=== PATIENT | male | born 1960 | race Caucasian/White ===

== ENCOUNTER → 2022-01-15 | Outpatient (CLI) | payer SELFPAY ==
--- NOTE | 2022-01-15 09:00 | ASPS_PTH ---
PATIENT: CARLOS ALLEN LOC: GLO U#:[id number] AGE/SX: 61/M ROOM: RE01/15/[address]: Dr. Remy Huber MD : 1960 BED: DIS: 01/15/2022 SPEC #: [id number] RECD: 01/15/22 10:33 STATUS: YONAS JUDE #: [id number] JAY: 01/15/22 09:[address]: Remy Huber DEPT: CYTOLOGY RECD BY: Renetta Caal Tissues: Supraclavicular region of neck Procedures: Special Stain Group II Cytology Other HEADER OPERATION: Ultrasound-guided biopsy, left supraclavicular subcutaneous lesion PRE-OP DIAGNOSIS: Left supraclavicular subcutaneous lesion TISSUE SUBMITTED: FNA supraclavicular subcutaneous lesion x10 slides DIAGNOSIS CYTOLOGY Left supraclavicular subcutaneous lesion, fine needle aspiration (smears): Negative for malignancy. See comment. SJ:david 01/16/2022 COMMENT The specimen is paucicellular and consists of scant fragments of adipose tissue. Correlation with clinical, radiologic findings and appropriate follow up are necessary. If there is a high suspicion of malignancy, incisional or excisional re-biopsy of the lesion is suggested, if clinically indicated. CYTOLOGY STUDY Slides are reviewed. CYTOLOGY GROSS Received are ten smears labeled with the patient's name and designated per the requisition as supraclavicular subcutaneous lesion. Submitted for staining. / david 01/15/2022 TC:5 CPT: 96624
== END | disposition home or self-care (01) ==
LOC: LABSPEC 10:50
PROVIDERS: Referring Provider Surgery; Visit Provider Surgery
DX: L98.9 Disorder of the skin and subcutaneous tissue, unspecified (principal)
CPT/HCPCS: 88161; 88313

== ENCOUNTER 2022-02-07 07:57 | Day surgery (SDC) | payer SELFPAY ==
[2022-02-07] VITALS (7 sets, daily range): BP systolic 113–158; BP diastolic 63–83; PULSE 53–72; RESP 14–18; TEMP 36.4–37.1; O2SAT 100; BMI 22.7
--- NOTE | 2022-02-07 | GASB_PTH ---
PATIENT: CARLOS ALLEN LOC: EN U#:[id number] AGE/SX: 61/M ROOM: RE02/07/[address]: Dr. Gloria Fox MD : 1960 BED: DIS: 02/07/2022 SPEC #: [id number] RECD: 02/07/22 10:32 STATUS: YONAS JUDE #: [id number] JAY: 02/07/22 00:[address]: Gloria Fox DEPT: SURGICAL PATHOLOGY RECD BY: Luis Champion ENTERED: 02/07/22 10:32 SP TYPE: Gastric Bx OTHR DR: MD Dr. Remy Rios MD Tissues: A - Gastric mucous membrane B - Esophageal mucous membrane Procedures: Surgery Specimen Level IV HEADER OPERATION: [place] [place] PRE-OP DIAGNOSIS: Enlarged lymph node, supraclavicular fossa fullness, dysphagia TISSUE SUBMITTED: A ? Antrum for H. pylori and path, B ? Lower esophagus biopsy MICROSCOPIC DIAGNOSIS A. Antrum, biopsy: Mild gastritis. See microscopic description and comment. B. Lower esophagus, biopsy: A fragment of benign squamous epithelium. SJ:david 02/08/2022 COMMENT A. The results of immunohistochemistry for Helicobacter pylori will be reported separately ([id number]). MICROSCOPIC DESCRIPTION Slides are reviewed. A. The specimen shows fragments of gastric mucosa with chronic inflammatory cell infiltrates in the lamina propria consisting of lymphocytes and plasma cells, consistent with mild chronic gastritis. GROSS DESCRIPTION A - Received in fixative is one container labeled with the patient's name and designated antrum biopsy. The specimen consists of two irregular fragments of light ortiz soft tissue that in aggregate measure 0.6 x 0.3 x 0.1 cm. The specimen is totally submitted in one cassette. B - Received in fixative is one container labeled with the patient's name and designated lower esophagus biopsy. The specimen consists of one irregular fragment of light ortiz soft tissue that measures 0.3 x 0.3 x 0.1 cm. The specimen is totally submitted in one cassette. / ELENA:david 02/07/2022 TC:3 CPT: 12742 x2
[2022-02-07] MEDS: Lactated Ringers 1,000 ML 15 ML IV (08:39)
--- NOTE | 2022-02-07 09:17 | HP.PCM_ITS ---
History and Physical Date of Admission: 02/07/22 Date of Service:? 01/15/22 MR#: [id number] Acct: [id number] Name:CARLOS KIM Rep #: [id number] : 1960 ? ? Provider: Dr. Remy Huber MD Age/Sex:? 61/M ? ? Location: [facility] Status: Signed Intake Vital Signs ? 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 He is referred from Dr. Noel.? He confirms that this was purely an incidental finding as he transitioned care from his prior primary care physician.? He denies any symptoms from this area.? He is also unaware of any growth.? He has no history of enlarged lymph nodes, lipomas, or other subcutaneous masses.? He denies any recent weight changes.? He denies any chills or night sweats.? The only thing that he can recall is some tension ache in his left back.? 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 He specifically denies any infections or trauma to his left upper extremity or chest.? During a family history, patient states that both his father and mother have significant history of for stroke.? He is 1 of 6 children and all are healthy. From a GI perspective, patient complains of some difficulty swallowing.? He reports this is occurred probably 6 times in the last 4 years.? He notes that pieces of pork or other meat seem to become stuck in his lower esophagus.? He tries to vigorously swallow liquids, but this does not seem to result in any improvement and he simply wait until things passed spontaneously?which they always do.? He denies any regular experience of heartburn or retrosternal discomfort.? He also denies any nighttime awakenings with aspiration events.? He has no prior history of asthma or eczema. Patient's lower GI review of systems is also reviewed and he denies any bowel movement concerns.? He denies noting any blood with bowel movement.? He has not experienced any change in the caliber of his bowel movements.? There is been no increased constipation, but he does admit to some recent hemorrhoids. Patient's work-up to date has included a ultrasound that showed some lymphadenopathy on 12/25/2021.? Follow-up CT imaging of the neck and chest occurred earlier this month, but no significant abnormalities were seen. ROS General General: No weight change, appetite, fatigue, colon cancer, breast cancer or weakness HEENT HEENT: Yes swollen glands; No difficulty swallowing, eye injury, eye surgery or hoarseness Endo Endocrine: No thyroid disease, diabetes mellitus, thyroid cancer, Hair loss, heat intolerance or cold intolerance Skin Skin: No rash or changing moles Breast Breast: No left breast lump, right breast lump, nipple discharge, breast pain, abnormal mammogram, abnormal US or breast enlargement Musc Musculoskeletal: Yes back problems and arthritis; No rheumatoid arthritis, gout or joint pain Cardio Cardiovascular: No murmur, pacemaker, heart disease, atrial fibrillation, high blood pressure, heart attack, heart stent, palpitations, shortness of breat with exertion or chest pain Psych Psychiatric: No depression, anxiety or hearing voices Resp Respiratory: No shortness of breath, No sleep apnea, No cough, No COPD, No asthma, No emphysema and No wheezing Gastro Gastrointestinal: No abdominal pain, No nausea or vomiting, No diarrhea, No constipation, No blood in stool, No acid reflux, No hemorrhoids, No ulcers, No gallbladder problem and No black,tarry stools Santhosh Hematologic: No blood thinners, No blood disorders, No bleeding, No anemia and No blood clots Neuro Neurologic: No system reviewed and no additional complaints, except as documented, No as per HPI, No abnormal gait, No abnormal hearing, No abnormal movements, No abnormal speech, No behavioral changes, No burning sensations, No confusion, No convulsions, No disequilibrium, No dizziness, No localized weakness, No frequent falls, No headache(s), No lack of coordination, No loss of vision, No memory loss, No numbness, No other visual disturbances, No radicular pain, No restless legs, No sensory deficit, No syncope, No tingling, No tremor(s), No weakness and No other Exam Const General: cooperative, no acute distress and anxious Orientation: alert, awake and oriented x3 Neck Other: Neck is examined via palpation and there is no nodularity to the thyroid or lymphadenopathy along the jugular chains.? These findings are confirmed when bedside ultrasound is applied to patient's neck bilaterally Chest Breast Palpation: Yes supraclavicular Other: Patient with asymmetrical fullness of the left supraclavicular fossa.? Patient describes some mild symptoms when this area is palpated including some shooting pain into his hand Under ultrasound exam there is an approximately 1 x 2 cm oval shaped mass in the subcutaneous space directly superior to the subclavian vein and medial to the external jugular vein with a heterogeneous composition.? This appears at least partially encapsulated and of a different echogenicity than the overlying strap muscles.? Several other benign?appearing lymph nodes are seen more medially along the jugular chain with fatty hilum intact Resp Effort & Inspection: normal respiratory effort GI Other: Slender, numerous nevi of consistent color and shape are seen across the anterior abdominal wall, nondistended, soft, nontender to palpation x4 quadrants Office Procedures Fine Needle Aspiration Provider Documentation Details: Indication: Supraclavicular subcutaneous lesion After obtaining patient consent and conducting a timeout amongst those present, the procedure was commenced by locating the suspicious lesion in the subcutaneous space of the supraclavicular fossa using ultrasound.? This was located just medial to the external jugular vein and superior to the subclavian vein.? Superficially, the skin was cleaned with an alcohol swab and a wheal of local anesthetic was created after instilling 5 ml 1% lidocaine.? Then, under ultrasound guidance, multiple passes were made into the lesion using a 25-gauge needle.? Once an adequate specimen was detected within the hub of the needle and bottom of the syringe, this was handed off the field.? A second pass was made in a similar manner using a 22-gauge needle.? This specimen, also, was passed off the field for cytopathologic evaluation.? This sequence was again repeated with a 25-gauge and a 22-gauge needle to ensure adequate specimen.? External pressure was applied to the neck to assist with hemostasis. ? A quick examination was ma de with ultrasound to exclude any evidence of hematoma formation.? Then the surface of the neck was cleaned, dried, and a bandage was applied.? Patient was gradually returned to the sitting position and after short period of monitoring was dismissed.? Wound care instructions and expectations regarding pathologic processing were discussed prior to dismissal. Complications: None Estimated blood loss: 2 ml Alert Monique Alert Billing: Yes Procedure Time Out Time Out Informed consent given: Yes Consent signed: Yes Time out checklist: patient, procedure, site marked/identified, positioning of patient, supplies available, allergies confirmed and team agrees on procedure Time out staff in room: Yes Time out verified: Yes Time out date: 01/15/22 Time out time: 09:30 Assessment and Plan Assessment and Plan (1) Enlarged lymph node: ?Status:?Acute ?Comment: Patient with mildly enlarged lymph nodes on recent ultrasound exam of supraclavicular fossa.? However, those noted by radiology all appeared to have fatty sisi. (2) Supraclavicular fossa fullness: ?Status:?Acute ?Comment: This is a 61-year-old male who presents for asymmetrical, left-sided supraclavicular fullness.? Differential would include lymphadenopathy?including Virchow's node versus subcutaneous mass.? Patient denies any B symptoms consistent with a underlying lymphoma and denies most GI complaints.? There is some mild lymphadenopathy noted on ultrasound exam from late November, however, as noted above fatty sisi were seen with those lymph nodes identified.? Subsequent CT imaging of the neck and chest were unremarkable.? In my exam of the patient's neck with bedside ultrasound, I identified a 1 x 2 cm subcutaneous, heterogeneous lesion of the supraclavicular space.? This resided directly cephalad to the subclavian vein.? Given that I had a clear approach from any other vascular structures, I did elect to perform a fine-needle aspirate under ultrasound guidance.? Patient tolerated this procedure well witho ut complications.? Cytopathology is currently pending.? Post procedure wound care instructions were provided. ?Plan: ? Follow-up cytopathology and we will telephone patient with results (3) Dysphagia: ?Status:?Acute ?Comment: Patient complains of some mild progressive dysphagia over the last 4 years.? He notes particularly difficult time with meats.? He denies any history of heartburn or GERD.? He has not had any prior scope.? Based on his description, I am suspicious for esophageal stricture, eosinophilic esophagitis, Schatzki's ring, other? Given his description, Mr. Fofana requires EGD for further evaluation.? With there being some likelihood of endoscopic dilation being required to resolve Mr. Fofana's problem, he may require evaluation with a different provider.? I will investigate this as we await the results of his above cytopathology. ?Plan: ? We will look into possible internal referral for this evaluation and possible intervention Coding Level of Care Code Attention Monique Diagnoses Enlarged lymph node? R59.9 Supraclavicular fossa fullness? R22.2 Dysphagia? R13.10 Comment Recommend CPT 85978 01/15/22 1729 <Electronically signed by Remy Huber MD> Date Remy Huber MD
--- NOTE | 2022-02-07 09:30 | IMM_PTH ---
PATIENT: CARLOS ALLEN LOC: EN U#:[id number] AGE/SX: 61/M ROOM: RE02/07/[address]: Dr. Gloria Fox MD : 1960 BED: DIS: 02/07/2022 SPEC #: [id number] RECD: 02/07/22 13:20 STATUS: YONAS REAny #: [id number] JAY: 02/07/22 09:[address]: Gloria Fox DEPT: IMMUNOHISTOCHEMISTRY RECD BY: Jocelynn Freeman ENTERED: 02/07/22 13:20 SP TYPE: IMMUNO OTHR DR: MD Dr. Remy Rios MD Tissues: A - Stomach, NOS Procedures: H Pylori (initial) PHYSICIAN & INSTITUTION [place] [address] SPECIMEN INFORMATION: Tissue Source: A ? Antrum biopsy Clinical Info: Enlarged lymph node, supraclavicular fossa fullness, dysphagia Specimen Number: [id number] CPT code: 43622 METHODOLOGY: Deparaffinized sections of prefer/formalin-fixed tissue or PAP/DQ stained slides are incubated with monoclonal/polyclonal antibodies/oligonucleotide probes. Localization is made via biotin free immunoperoxidase method. Appropriate controls are performed and reacted as expected. Results on target cell population are indicated in the following table: RESULTS: ANTIBODY / CLONE RESULT Block A H Pylori (polyclonal) negative These tests were developed and their performance characteristics determined by [facility]. They may not have been cleared or approved by the U.S. Food and Drug Administration. The FDA has determined that such clearance or approval is not necessary. The above immunohistochemical/dualISH markers are ordered and reviewed by the Pathologist. INTERPRETATION: A. Antrum, biopsy: Negative for Helicobacter pylori organisms. SJ:david 02/08/2022
--- NOTE | 2022-02-07 09:44 | OP.EGD_ITS ---
Patient Name: Sanchez Fofana Procedure Date: 02/07/2022 9:23 AM Date of : 1960 Age: 61 Procedure: Upper GI endoscopy Indications: Dysphagia Providers: Gloria Fox MD Referring MD: Gloria Fox MD Medicines: Monitored Anesthesia Care Patient Profile: This is a 61 year old male. Complications: No immediate complications. Procedure: Pre-Anesthesia Assessment: - Prior to the procedure, a History and Physical was performed, and patient medications and allergies were reviewed. The patient's tolerance of previous anesthesia was also reviewed. The risks and benefits of the procedure and the sedation options and risks were discussed with the patient. All questions were answered, and informed consent was obtained. Prior Anticoagulants: The patient has taken no previous anticoagulant or antiplatelet agents. ASA Grade Assessment: Per anesthesia. After reviewing the risks and benefits, the patient was deemed in satisfactory condition to undergo the procedure. After obtaining informed consent, the endoscope was passed under direct vision. Throughout the procedure, the patient's blood pressure, pulse, and oxygen saturations were monitored continuously. The Endoscope was introduced through the mouth, and advanced to the second part of duodenum. The upper GI endoscopy was accomplished without difficulty. The patient tolerated the procedure well. Scope In: 9:33:06 AM Scope Out: 9:38:52 AM Total Procedure Duration Time 0 hours 5 minutes 46 seconds Findings: The Z-line was regular. No gross lesions were noted in the entire esophagus. Biopsies were taken with a cold forceps in the lower third of the esophagus for histology. Diffuse mildly erythematous mucosa without bleeding was found in the gastric antrum. Biopsies were taken with a cold forceps for histology. Biopsies were taken with a cold forceps for Helicobacter pylori cultures. The examined duodenum was normal. The cardia and gastric fundus were normal on retroflexion. Impression: - Z-line regular. - No gross lesions in esophagus. - Erythematous mucosa in the antrum. Biopsied. - Normal examined duodenum. - Biopsies were taken with a cold forceps for histology in the lower third of the esophagus. Recommendation: - Await pathology results. - Discharge patient to home. - Resume previous diet. - Continue present medications. Procedure Code(s): --- Professional --- 36033, Esophagogastroduodenoscopy, flexible, transoral; with biopsy, single or multiple Diagnosis Code(s): --- Professional --- K31.89, Other diseases of stomach and duodenum R13.10, Dysphagia, unspecified CPT copyright 2017 [employer]. All rights reserved. The codes documented in this report are preliminary and upon community representative review may be revised to meet current compliance requirements. MD Gloria Noe MD 02/07/2022 9:43:42 AM This report has been signed electronically. Number of Addenda: 0 Note Initiated On: 02/07/2022 9:23 AM
--- NOTE | 2022-02-07 09:44 | OP.CCLET_ITS ---
02/07/2022 Gianna Noel Re : Upper GI endoscopy procedure for Sanchez Fofana Dear Sadie This procedure was performed on January. My impressions and recommendations are as follows: Impressions : - Z-line regular. - No gross lesions in esophagus. - Erythematous mucosa in the antrum. Biopsied. - Normal examined duodenum. - Biopsies were taken with a cold forceps for histology in the lower third of the esophagus. Recommendations : - Await pathology results. - Discharge patient to home. - Resume previous diet. - Continue present medications. My findings are described in the full procedure note, which is enclosed. If I can be of further assistance, please feel free to contact me at Doctor phone number(s): , Work: . Sincerely, MD Gloria Noe MD 02/07/2022 9:43:42 AM This report has been signed electronically.
== END 2022-02-07 10:30 | disposition home or self-care (01) ==
LOC: EN 08:05 → AC 08:05
PROVIDERS: PCP Internal Medicine; Referring Provider Surgery; Visit Provider Surgery
PROC: 0DJ08ZZ Inspection of Upper Intestinal Tract, Via Natural or Artificial Opening Endoscopic (ICD-10-PCS; CPT 43235; principal; 2022-02-07 09:25)
DX: K29.50 Unspecified chronic gastritis without bleeding (principal); K31.89 Other diseases of stomach and duodenum; K20.90 Esophagitis, unspecified without bleeding; R13.10 Dysphagia, unspecified; Z79.82 Long term (current) use of aspirin
CPT/HCPCS: 43239; 88305; 88342; J7120; J2405